=== PATIENT | male | born 1950 | race Caucasian/White ===

== ENCOUNTER 2016-08-09 22:22 | Observation (INO) | payer BC ==
[~2016-08-09] VITALS: Ht 177.8 cm; Wt 90.5 kg
--- NOTE | ~2016-08-09 | HEMODYNAMI ---
PATIENT:ROSIE CORDOVA MEDICAL RECORD: [id number] : 54 LOCATION:[address] [id number] ADMISSION DATE: 08/10/16 Generatedon:08/10/201613:00 Patient name: ROSIE CORDOVA Patient #: [id number] SSN: : 1 03/13/1949 Date of study: 08/10/2016 Page: Of Hemodynamic Procedure Report Patient Data Patient Demographics Procedure consent was obtained First Name: ROSIE Gender: Male Last Name: TASHA : 1950 [facility] Initial: E Age: 66 year(s) Patient #: [id number] Race: Unknown Additional ID: [id number] Contact details [address]: [address] [place] [address] State: [place] City: [place] Zip code: [address] Past Medical History Allergies Allergen Reaction Date Comments Reported Other allergy 08/10/2016 hydrocodone Admission Admission Data Admission Date: 08/10/2016 Admission Time: 1:12 Room #: [facility] Lab Results Lab Result Date: 08/10/2016 Lab Result Time: 0:00 Biochemistry Name Units Result Min Max Creatinine mg/dl 1.3 --(---*)-- 0.6 1.3 CBC Name Units Result Min Max Hemoglobin g/dl 17 --(---*)-- 13.5 17.5 Procedure Procedure Types Cath Procedure Diagnostic Procedure LHC LHC w/Coronaries PCI Procedure Coronary Stent Initial x2 Miscellaneous Procedures Moderate Sedation up to 30 minutes Procedure Description Procedure Date Procedure Date: 08/10/2016 Procedure Start Time: 12:34 Procedure End Time: 12:59 Procedure Staff Name Function Jonathon Quiroga MD Performing Physician Radha Bender RT Scrub America Bedolla RN Nurse Artie Ho RN Nurse Celeste Moffett RT Monitor Procedure Data Cath Procedure Fluoroscopy Diagnostic fluoroscopy Total fluoroscopy Time: 8.4 time: 8.4 min min Diagnostic fluoroscopy Total fluoroscopy dose: dose: 1304 mGy 1304 mGy Contrast Material Contrast Material Type Amount (ml) Isovue 300 144 Entry Location Entry Primary Successful Side Size Upsize Upsize Entry Closure White ccessful Closure Location (Fr) 1 (Fr) 2 (Fr) Remarks Device Remarks Radial Right 6 Fr Mechanical artery Short Compression Estimated blood loss: 10 ml Diagnostic catheters Device Type Used For End Catheter Placement Diagnostic Terumo 5Fr LV Angiography [place] 110cm catheter Diagnostic Terumo 5Fr Left Coronary [place] 110cm catheter Angiography Diagnostic Terumo 5Fr Right Coronary [place] 110cm catheter Angiography Procedure Complications No complications Procedure Medications Medication Administration Route Dosage Lidocaine 2% added to field 20 Heparin Flush Bag added to field 2 bags (1000units/500ml NS) 0.9% NaCl I.V. 100 ml/hr Oxygen NC 3 l/min Radial Cocktail added to field 1 syringe (Verapomil 2mg/Nitro 400mcg/Heparin 1500units) Versed I.V. 1 mg Fentanyl I.V. 50 mcg Heparin Bolus I.V. 5000 units Integrilin (Bolus I.V. 7.9 ml 2mg/ml) Versed I.V. 0.5 mg Fentanyl I.V. 25 mcg Plavix P.O. 75 mg Radial Cocktail I.A. 1 syringe (Verapomil 2mg/Nitro 400mcg/Heparin 1500units) Hemodynamics Rest HGB: 17 (g/dl) Heart Rate: 75 (bpm) Snapshots Pre Cath Intra NCS Post Cath Vital Signs Time Heart Resp SPO2 NIBP (mmHg) Rhythm Pain Sedation Rate (ipm) (%) Status Level (bpm) 12:20:47 80 17 100 162/105(128) NSR 0 (11) 10(A) , No pain 12:25:05 80 15 100 138/78(120) NSR 0 (11) 10(A) , No pain 12:29:21 86 16 100 137/83(106) NSR 0 (11) 10(A) , No pain 12:33:35 83 15 100 140/85(111) NSR 0 (11) 9(A) , No pain 12:37:57 94 15 100 106/72(90) NSR 0 (11) 9(A) , No pain 12:42:44 89 13 98 130/78(105) NSR 0 (11) 9(A) , No pain 12:47:00 90 17 99 128/76(102) NSR 0 (11) 9(A) , No pain 12:51:14 83 16 99 135/77(108) NSR 0 (11) 9(A) , No pain 12:55:28 87 16 100 137/83(112) NSR 0 (11) 10(A) , No pain 12:59:44 97 129/84(103) NSR 0 (11) 10(A) , No pain Medications Time Medication Route Dose Verified Delivered Reason Notes Effectiveness by by 12:10:52 Lidocaine 2% added 20ml America America used for to vial Graeme Graeme procedure field RN RN 12:11:01 Heparin Flush added 2 bags America America used for Bag to Graeme Graeme procedure (1000units/500ml field RN RN NS) 12:15:39 0.9% NaCl I.V. 100 America America used for ml/hr Graeme Graeme hog dropper RN 12:15:51 Oxygen NC 3 l/min America America used for Graeme Graeme hog dropper RN 12:15:59 Radial Cocktail added 1 America America used for (Verapomil to syringe Graeme Graeme procedure 2mg/Nitro field RN RN 400mcg/Heparin 1500units) 12:30:45 Versed I.V. 1 mg America America for Graeme Graeme sedation RN RN 12:30:52 Fentanyl I.V. 50 mcg America America for Graeme Graeme sedation RN RN 12:35:30 Versed I.V. 0.5 mg America America for Graeme Graeme sedation RN RN 12:35:38 Fentanyl I.V. 25 mcg America America for Graeme Graeme sedation RN RN 12:35:41 Radial Cocktail I.A. 1 Jonathon Holt used for (Verapomil syringe Junaid Quiroga MD procedure 2mg/Nitro 400mcg/Heparin 1500units) 12:38:59 Heparin Bolus I.V. 5000 America America Per verified units Graeme Graeme physician with RN WILBERTO quiroga 12:40:52 Integrilin I.V. 7.9ml America America Per 2.1ml (Bolus 2mg/ml) Graeme Graeme physician wasted RN RN 12:53:24 Plavix P.O. 75 mg America Bedolla physician RN customer marketing intern Log Time Note 12:07:42 Artie Ho RN sent for patient. Start room use. 12:07:42 Time tracking: Regular hours 12:07:46 Plan of Care:Hemodynamics will remain stable., Cardiac rhythm will remain stable., Comfort level will be maintained., Respiratory function will remain adequate., Patient/ family verbilizes understanding of procedure., Procedure tolerated without complication., Recovers from procedure without complications.. 12:10:52 Lidocaine 2% 20ml vial added to field was administered by America Bedolla RN; used for procedure; 12:11:01 Heparin Flush Bag (1000units/500ml NS) 2 bags added to field was administered by America Bedolla RN; used for procedure; 12:12:10 Patient received from PCU to CCL 2 Alert and oriented. Tansferred to table in Supine position. 12:12:11 Warm blankets applied, and tereza hugger turned on for patient comfort. 12:12:11 Correct patient and procedure confirmed by team. 12:12:12 Signed procedure consent form obtained from patient. 12:12:13 ECG and BP/O2 sat monitors applied to patient. 12:12:14 Full Disclosure recording started 12:15:39 0.9% NaCl 100 ml/hr I.V. was administered by America Bedolla RN; used for procedure; 12:15:51 Oxygen 3 l/min NC was administered by America Bedolla RN; used for procedure; 12:15:59 Radial Cocktail (Verapomil 2mg/Nitro 400mcg/Heparin 1500units) 1 syringe added to field was administered by America Bedolla RN; used for procedure; 12:19:39 Vital chart was started 12:21:12 Baseline sample Acquired. 12:21:15 Rhythm: sinus rhythm 12:21:47 H&P Date Dictated: 08/10/2016 Within 30 days and on chart.. 12:21:48 Pre-procedure instructions explained to patient. 12:21:48 Pre-op teaching completed and patient verbalized understanding. 12:21:49 Family in waiting room. 12:21:51 Patient NPO since Midnight. 12:22:02 Patient allergic to Other allergyhydrocodone 12:22:05 Is the patient allergic to Iodine/contrast media? No. 12:22:06 Is patient on blood thinner?Yes 12:22:09 ACC The patient was administered the following blood thiners within the last 24 hours: ACCPlavix 12:22:10 Patient diabetic? No. 12:22:14 Previous problem with sedation/anesthesia? No ? 12:22:14 Snore? Yes 12:22:16 Sleep apnea? Yes 12:22:17 Deviated septum? No 12:22:18 Opens mouth fully? Yes 12:22:24 Sticks out tongue? Yes 12:22:32 Airway obstruction? Yes ASTHMA 12:22:36 Dentures? No ? 12:22:39 Pre procedure: right dorsailis pedis pulse 2+ Normal; easily identifiable; not easily obliterated 12:22:41 Modified Jovani's test Ulnar < 7 seconds 12:22:42 Patient pain scale 0/10 ?. 12:22:50 IV patent on arrival in left hand with 0.9% NaCl at [facility]. 12:23:07 Lab Result : Hemoglobin 17 g/dl 12:23:07 Lab Result : Creatinine 1.3 mg/dl 12:23:10 Lab results completed and on chart. 12:23:13 Right Radial & Right Groin area was prepped with chlora-prep and draped in sterile fashion 12:23:13 Alarms reviewed by R. N. 12:23:14 Sharps counted by scrub and verified by R.N. 12:23:15 Use device set Radial Dx 12:23:17 Acist Syringe opened to sterile field. 12:23:17 Medline Cath Pack opened to sterile field. 12:23:18 Bag Decanter opened to sterile field. 12:23:18 Terumo 6Fr Slender Glidesheath opened to sterile field. 12:23:19 St Larry 260cm J .035 wire opened to sterile field. 12:23:19 Acist Hand Control opened to sterile field. 12:23:19 Acist Manifold opened to sterile field. 12:23:20 Tegaderm 4 x 4 opened to sterile field. 12:23:48 IV Extension Set opened to sterile field. 12:28:37 Final Timeout: patient, procedure, and site verified with staff and physician. All members of the team are in agreement. 12::40 Right Radial site verified by team. 12::42 Physical assessment completed. ASA score P 2 - A patient with mild systemic disease as per Jonathon Quiroga MD. 12::45 Sedation plan: IV Moderate Sedation Versed, Fentanyl 12::45 Versed 1 mg I.V. was administered by America Bedolla RN; for sedation; ::52 Fentanyl 50 mcg I.V. was administered by America Bedolla RN; for sedation; 12::30 Zero performed for pressure channel P1 12:33:17 Procedure started. 12:34:10 Local anesthetic to right radial artery with Lidocaine 2% by Jonathon Quiroga MD.INITIAL ACCESS ONLY 12:35:08 A 6 Fr Short sheath was inserted into the Right Radial artery 12:35:30 Versed 0.5 mg I.V. was administered by America Bedolla RN; for sedation; 12:35:38 Fentanyl 25 mcg I.V. was administered by America Bedolla RN; for sedation; 12:35:38 A Diagnostic Terumo 5Fr [place] 110cm catheter was advanced over the wire and used for LV Angiography. 12:35:41 Radial Cocktail (Verapomil 2mg/Nitro 400mcg/Heparin 1500units) 1 syringe I.A. was administered by Jonathon Quiroga MD; used for procedure; 12:37:18 LV gram done using MERCADO 12:37:22 Injector settings: Ml/sec: 5, Volume: 15, 12:37:29 EF : 60 % 12:37:40 A Diagnostic Terumo 5Fr [place] 110cm catheter was advanced over the wire and used for Left Coronary Angiography. 12:38:35 A Diagnostic Terumo 5Fr [place] 110cm catheter was advanced over the wire and used for Right Coronary Angiography. 12:38:59 Heparin Bolus 5000 units I.V. was administered by America Bedolla RN; Per physician; verified with dr. quiroga 12:39:16 Merit BasixCompak Inflation Kit opened to sterile field. 12:39:17 Manning Whisper J 300cm 0.014 guide wire opened to sterile field. 12:40:09 Catheter removed. 12::45 6 Fr XBLAD 3.5 guide catheter was inserted over the wire 12:40:52 Integrilin (Bolus 2mg/ml) 7.9ml I.V. was administered by America Bedolla RN; Per physician; 2.1ml wasted 12:42:09 WHISPER wire advanced. 12:43:20 Inflation number: 1 A [place] 2.5 X 20 balloon was prepped and advanced across the Mid CX, then inflated to 5 LALITHA for 0:06 (min:sec). 12:43:50 Inflation number: 2 The Fifty [place] Sci [place] 2.5 X 20 balloon was reinflated across the Mid CX, to 17 LALITHA for 0:09 (min:sec). 12:44:57 Balloon removed over the wire. 12:46:09 Inflation Number: 3 A Biofreedom 3.5 x 28 stent (No Cost Implant) was prepped and advanced across the Mid CX. The stent was deployed at 15 LALITHA for 0:07 (min:sec). 12:47:02 Stent catheter was removed intact over wire. 12:49:26 Inflation Number: 4 A Biofreedom 3.5 x 14 stent (No Cost Implant) was prepped and advanced across the Mid CX. The stent was deployed at 15 LALITHA for 0:10 (min:sec). 12:49:43 Wire redirected to LAD. 12:50:16 Stent catheter was removed intact over wire. 12:51:29 Inflation Number: 1 A Biofreedom 3.0 x 18 stent (No Cost Implant) was prepped and advanced across the Prox LAD. The stent was deployed at 15 LALITHA for 0:08 (min:sec). 12:51:56 Stent catheter was removed intact over wire. 12:51:56 Wire removed. 12:51:57 Guide catheter removed. 12:52:08 Sheath removed intact; hemostasis achieved with Mechanical Compression to the Right Radial artery. 12:53:07 Procedure ended.(Physican Out) 12:53:24 Plavix 75 mg P.O. was administered by America Bedolla RN; Per physician; 12:55:04 Terumo TR Band Standard opened to sterile field. 12:55:09 Fluoroscopy time 08.40 minutes. 12:55:13 Fluoroscopy dose: 1304 mGy 12:55:13 Flurop Dose total: 1304 12:55:18 Contrast amount:Isovue 300 144ml. 12:55:19 Sharps counted by scrub and verified by R.N. 12:55:21 TR band inflated with 12cc of air. 12:55:22 Insertion/operative site no bleeding no hematoma. 12:55:27 Post right radial artery:stable, clean and dry 12:55:29 Post Procedure Pulses reassessed and unchanged 12:55:32 Post-procedure physical assessment completed. ASA score P 2 - A patient with mild systemic disease as per Jonathon Quiroga MD. 12:55:36 Post procedure rhythm: unchanged. 12:55:38 Estimated blood loss: 10 ml 12:55:40 Post procedure instruction explained to patient.Patient verbalizes understanding. 12:55:41 Patient needs reinforcement of post procedure teaching. 12:56:12 Procedure type changed to Cath procedure, Diagnostic procedure, LHC, LHC w/Coronaries, PCI procedure, Coronary Stent Initial x2, Miscellaneous Procedures, Moderate Sedation up to 30 minutes 12:56:16 Procedure Complication : No complications 12:56:18 See physician's report for complete and final results. 12:56:26 Report given to PCU. 12:57:28 Cordis 6FR XBLAD 3.5 guide catheter opened to sterile field. 12:58:11 Procedure and supply charges have been captured, reviewed, submitted and are correct. 12:59:29 Vital chart was stopped 12:59:32 Patient transfered to PCU with Bed. 12:59:41 Procedure ended. 12:59:41 Full Disclosure recording stopped 12:59:53 End room use (Document Last) Intervention Summary Intervention Notes Time ActionType Lesion and Equipment Action# Pressure Duration Attributes Used 12:43:20 Inflate Mid CX [place] 1 5 00:06 balloon [place] 2.5 X 20 balloon 12:43:50 Reinflate Mid CX [place] 2 17 00:09 balloon [place] 2.5 X 20 balloon 12:46:09 Place stent Mid CX Biofreedom 3 15 00:07 3.5 x 28 stent (No Cost Implant) 12:49:26 Place stent Mid CX Biofreedom 4 15 00:10 3.5 x 14 stent (No Cost Implant) 12:51:29 Place stent Prox LAD Biofreedom 1 15 00:08 3.0 x 18 stent (No Cost Implant) Device Usage Item Name Manufacture Quantity Catalog Number Hospital Part Current Mini [facility] Lot# / Charge Number Stock Stock Serial# Code Acist Acist 1 86891 042100 122210 517323 20 Syringe Medical Systems Inc Medline Cardinal 1 [id number] 735780 53378 064380 5 Cath Pack Health Bag Microtek 1 [id number] 25049 354665 5 Decanter Medical Inc. Terumo 6Fr Terumo 1 [id number] 041388 786504 497324 [address] Larry 1 243391 919331 495332 708056 30 260cm J .035 wire Acist Hand Acist 1 27840 033017 798139 653957 5 Control Medical Systems Inc Acist Acist 1 36995 117448 245604 221500 5 Manifold Medical Systems Inc Tegaderm 4 3M 1 [id number] 605989 279174 727848 5 x 4 IV Hospira 1 55255-91 264400 87479 389340 5 Extension Set Diagnostic Terumo 1 40-0485 593692 431665 766577 5 Terumo 5Fr [place] 110cm catheter Merit Merit 1 [id number] 903996 609468 851076 15 BasixCompak Medical Inflation Kit Manning Manning 1 [id number] 412962 266733 014360 5 Whisper J Vascular 300cm 0.014 guide wire [place] Six 1 [id number] 793921 050877 516875 1 Solapa4 2.5 X 20 balloon Biofreedom Biosensors 1 [facility]2-3528 629411 192094 5 [id number] 3.5 x 28 [place] stent (No Cost Implant) Biofreedom Biosensors 1 [facility]2-1134 995428 876668 5 [id number] 3.5 x 14 [place] stent (No Cost Implant) Biofreedom Biosensors 1 [facility]2-3018 450697 269645 5 [id number] 3.0 x 18 [place] stent (No Cost Implant) Terumo TR Terumo 1 [id number] 515063 433221 648480 40 Band Standard Cordis 6FR Cardinal 1 [id number] 608574 769135 083300 10 XBLAD 3.5 Health guide catheter Signature Audit Hilger Stage Time Signature Unsigned Intra-Procedure 08/10/2016 Celeste 1:00:13 PM Counts RT(R) Signatures Monitor : Celeste Signature : Counts RT Date : Time : [address] [place] [address]
--- NOTE | ~2016-08-09 | HEMODYNAMI ---
PATIENT:ROSIE CORDOVA MEDICAL RECORD: [id number] : 54 LOCATION:[facility] D.[address] [id number] ADMISSION DATE: 08/10/16 Generatedon:08/11/20169:35 Patient name: ROSIE CORDOVA Patient #: [id number] SSN: : 1 03/13/1949 Date of study: 08/11/2016 Page: Of Hemodynamic Procedure Report Patient Data Patient Demographics Procedure consent was obtained First Name: ROSIE Gender: Male Last Name: TASHA : 1950 [facility] Initial: E Age: 66 year(s) Patient #: [id number] Race: Additional ID: [id number] Contact details [address]: [address] [place] [address] State: [place] City: [place] Zip code: [address] Past Medical History Allergies Allergen Reaction Date Comments Reported Other allergy 08/10/2016 hydrocodone Admission Admission Data Admission Date: 08/10/2016 Admission Time: 1:12 [facility] Lab Results Lab Result Date: 08/10/2016 Lab Result Time: 0:00 Biochemistry Name Units Result Min Max Creatinine mg/dl 1.3 --(---*)-- 0.6 1.3 CBC Name Units Result Min Max Hemoglobin g/dl 17 --(---*)-- 13.5 17.5 Procedure Procedure Types Cath Procedure PCI Procedure Coronary Stent Initial Miscellaneous Procedures Moderate Sedation up to 15 minutes Procedure Description Procedure Date Procedure Date: 08/11/2016 Procedure Start Time: 9:23 Procedure End Time: 9:35 Procedure Staff Name Function Jonathon Quiroga MD Performing Physician Artie Ho RN Nurse Celeste Moffett RT Scrub Radha Bender RT Monitor Procedure Data Cath Procedure Fluoroscopy Diagnostic fluoroscopy Total fluoroscopy Time: 1.8 time: 1.8 min min Diagnostic fluoroscopy Total fluoroscopy dose: 125 dose: 125 mGy mGy Contrast Material Contrast Material Type Amount (ml) Isovue 300 19 Entry Location Entry Primary Successful Side Size Upsize Upsize Entry Closure Succes sful Closure Location (Fr) 1 (Fr) 2 (Fr) Remarks Device Remarks Femoral Right 6 Fr Exoseal artery Short Estimated blood loss: 5 ml Procedure Complications No complications Procedure Medications Medication Administration Route Dosage Oxygen NC 2 l/min Lidocaine 2% added to field 20 Heparin Flush Bag added to field 2 bags (1000units/500ml NS) 0.9% NaCl I.V. 100 ml/hr Zofran I.V. 4 mg Versed I.V. 1 mg Fentanyl I.V. 50 mcg Heparin Bolus I.V. 4000 units Versed I.V. 1 mg Fentanyl I.V. 50 mcg Versed I.V. 1 mg Fentanyl I.V. 50 mcg Hemodynamics Rest HGB: 17 (g/dl) Heart Rate: 68 (bpm) Snapshots Pre Cath Intra NCS Post Cath Vital Signs Time Heart Resp SPO2 NIBP (mmHg) Rhythm Pain Sedation Rate (ipm) (%) Status Level (bpm) 8:51:25 67 23 100 147/95(127) NSR 0 (11) 10(A) , No pain 8:55:43 63 17 99 145/89(128) NSR 0 (11) 10(A) , No pain 8:59:57 77 17 100 148/89(124) NSR 0 (11) 10(A) , No pain 9:04:13 71 24 100 134/94(118) NSR 0 (11) 10(A) , No pain 9:08:27 70 24 96 126/81(101) NSR 0 (11) 10(A) , No pain 9:12:39 57 25 97 123/82(98) NSR 0 (11) 10(A) , No pain 9:16:49 59 19 98 128/80(101) NSR 0 (11) 10(A) , No pain 9:21:05 61 16 99 128/69(98) NSR 0 (11) 10(A) , No pain 9:25:21 60 18 99 131/72(105) NSR 0 (11) 9(A) , No pain 9:29:28 69 17 99 120/79(98) NSR 0 (11) 9(A) , No pain 9:34:32 77 17 98 138/84(107) NSR 0 (11) 10(A) , No pain Medications Time Medication Route Dose Verified Delivered Reason Notes Effectiveness by by 8:56:19 Oxygen NC 2 Jonathon Bolivarie used for l/min Junaid Ho RN procedure 8:56:24 Lidocaine 2% added 20ml Jonathonmolly Holt for local to vial Junaid Quiroga MD anesthetic field 8:56:31 Heparin Flush added 2 Jonathon Jonathon used for Bag to bags Junaid Quiroga MD procedure (1000units/500ml field NS) 8:56:39 0.9% NaCl I.V. 100 Jonathon Buffie Per physician ml/hr Junaid Ho RN 8:56:48 Zofran I.V. 4 mg Jonathon Bolivarie Per physician Junaid Ho RN 9:19:43 Versed I.V. 1 mg Jonathon Buffie for sedation Junaid Ho RN 9:19:48 Fentanyl I.V. 50 Jonathon Buffie for sedation mcg Junaid Ho RN 9:24:08 Heparin Bolus I.V. 4000 Jonathon Buffie for verifie d units Junaid Ho RN anticoagulation with dr quiroga 9:25:12 Versed I.V. 1 mg Jonathon Buffie for sedation Junaid Ho RN 9:25:16 Fentanyl I.V. 50 Jonathon Buffie for sedation mcg Junaid Ho RN 9:28:25 Versed I.V. 1 mg Jonathon Buffie for sedation Junaid Ho RN 9:28:28 Fentanyl I.V. 50 Jonathon Buffie for sedation mcg Junaid Ho RN Procedure Log Time Note 8:30:45 Celeste Counts RT(R) sent for patient. Start room use. 8:30:46 Time tracking: Regular hours 8:30:50 Plan of Care:Hemodynamics will remain stable., Cardiac rhythm will remain stable., Comfort level will be maintained., Respiratory function will remain adequate., Patient/ family verbilizes understanding of procedure., Procedure tolerated without complication., Recovers from procedure without complications.. 8:50:16 Patient received from PCU to CCL 2 Alert and oriented. Tansferred to table in Supine position. 8:50:17 Warm blankets applied, and tereza hugger turned on for patient comfort. 8:50:17 Correct patient and procedure confirmed by team. 8:50:18 Signed procedure consent form obtained from patient. 8:50:19 ECG and BP/O2 sat monitors applied to patient. 8:50:19 Vital chart was started 8:50:20 Full Disclosure recording started 8:52:18 Baseline sample Acquired. 8:53:58 Rhythm: sinus rhythm 8:54:12 H&P Date Dictated: 08/10/2016 Within 30 days and on chart.. 8:54:13 Pre-procedure instructions explained to patient. 8:54:14 Pre-op teaching completed and patient verbalized understanding. 8:54:15 Family in patients room. 8:54:18 Patient NPO since Midnight. 8:54:23 Is the patient allergic to Iodine/contrast media? No. 8:54:24 Is patient on blood thinner?Yes 8:54:28 ACC The patient was administered the following blood thiners within the last 24 hours: ACCAspirin, ACCPlavix 8:54:59 Patient diabetic? No. 8:55:02 Previous problem with sedation/anesthesia? No ? 8:55:03 Snore? Yes 8:55:04 Sleep apnea? Yes 8:55:05 Deviated septum? No 8:55:05 Opens mouth fully? Yes 8:55:06 Sticks out tongue? Yes 8:55:10 Airway obstruction? Yes ASTHMA 8:55:12 Dentures? No ? 8:55:14 Pre procedure: right dorsailis pedis pulse 2+ Normal; easily identifiable; not easily obliterated 8:55:17 Patient pain scale 0/10 ?. 8:55:24 IV patent on arrival in right hand with 0.9% NaCl at [facility]. 8:56:19 Oxygen 2 l/min NC was administered by Artie Ho RN; used for procedure; 8:56:24 Lidocaine 2% 20ml vial added to field was administered by Jonathon Quiroga MD; for local anesthetic; 8:56:31 Heparin Flush Bag (1000units/500ml NS) 2 bags added to field was administered by Jonathon Quiroga MD; used for procedure; 8:56:39 0.9% NaCl 100 ml/hr I.V. was administered by Artie Ho RN; Per physician; 8:56:48 Zofran 4 mg I.V. was administered by Artie Ho RN; Per physician; 8:57:36 Lab results completed and on chart. 8:57:39 Right groin area was prepped with chlora-prep and draped in sterile fashion 8:57:39 Alarms reviewed by R. N. 8:57:40 Sharps counted by scrub and verified by R.N. 8:57:43 Use device set Femoral PCI 8:57:44 Acist Syringe opened to sterile field. 8:57:45 Acist Hand Control opened to sterile field. 8:57:45 Bag Decanter opened to sterile field. 8:57:45 Medline Cath Pack opened to sterile field. 8:57:46 Terumo 6Fr Hitchcock Sheath opened to sterile field. 8:57:46 St Larry 260cm J .035 wire opened to sterile field. 8:57:46 Merit BasixCompak Inflation Kit opened to sterile field. 8:57:47 Acist Manifold opened to sterile field. 8:57:47 Tegaderm 4 x 4 opened to sterile field. 8:57:54 Manning Whisper J 300cm 0.014 guide wire opened to sterile field. 9:08:52 Zero performed for pressure channel P1 9:18:04 Final Timeout: patient, procedure, and site verified with staff and physician. All members of the team are in agreement. 9:18:06 Right groin site verified by team. 9:18:09 Physical assessment completed. ASA score P 2 - A patient with mild systemic disease as per Jonathon Quiroga MD. 9:18:12 Sedation plan: IV Moderate Sedation Versed, Fentanyl 9:19:43 Versed 1 mg I.V. was administered by Artie Ho RN; for sedation; 9:19:48 Fentanyl 50 mcg I.V. was administered by Artie Ho RN; for sedation; 9:19:59 Medtronic Launcher 6Fr AR 2.0 guide catheter opened to sterile field. 9:23:25 Procedure started. 9:23:28 Local anesthetic to right femoral artery with Lidocaine 2% by Jonathon Quiroga MD.INITIAL ACCESS ONLY 9:24:02 A 6 Fr Short sheath was inserted into the Right Femoral artery 9:24:08 Heparin Bolus 4000 units I.V. was administered by Artie Ho RN; for anticoagulation; verified with dr quiroga 9:24:29 6 Fr AR 2.0 guide catheter was inserted over the wire 9:25:12 Versed 1 mg I.V. was administered by Buffie Ho RN; for sedation; 9:25:16 Fentanyl 50 mcg I.V. was administered by Artie Ho RN; for sedation; 9::45 Whisper wire advanced. 9::38 Inflation Number: 1 A Biofreedom 3.0 x 14 stent (No Cost Implant) was prepped and advanced across the Prox RCA. The stent was deployed at 15 LALITHA for 0:10 (min:sec). 9::50 Stent catheter was removed intact over wire. 9:: Wire removed. 9:: Guide catheter removed. 9::59 Sheath removed intact; hemostasis achieved with Exoseal to the Right Femoral artery. 9:28:00 Procedure ended.(Physican Out) 9:28:10 Fluoroscopy time 01.80 minutes. 9::13 Flurop Dose total: 125 9::13 Fluoroscopy dose: 125 mGy 9:28:22 Contrast amount:Isovue 300 19ml. 9:28:25 Versed 1 mg I.V. was administered by Artie Ho RN; for sedation; :: Fentanyl 50 mcg I.V. was administered by Artie Ho RN; for sedation; 9:30:22 Sharps counted by scrub and verified by R.N. 9:30:23 Insertion/operative site no bleeding no hematoma. 9:30:26 Post-op/insertion site Right Femoral artery dressed using a 4 x 4 and Tegaderm. 9:30:29 Post right femoral artery:stable, clean and dry 9:30:30 Post Procedure Pulses reassessed and unchanged 9:30:34 Post-procedure physical assessment completed. ASA score P 2 - A patient with mild systemic disease as per Jonathon Quiroga MD. 9:30:37 Post procedure rhythm: unchanged. 9:30:40 Estimated blood loss: 5 ml 9:30:46 Post procedure instruction explained to patient.Patient verbalizes understanding. 9:30:47 Patient needs reinforcement of post procedure teaching. 9:30:51 Procedure type changed to Cath procedure, PCI procedure, Coronary Stent Initial, Miscellaneous Procedures, Moderate Sedation up to 15 minutes 9:30:57 Procedure Complication : No complications 9:30:59 See physician's report for complete and final results. 9:31:37 Cordis 6Fr Exoseal opened to sterile field. 9:32:12 Procedure and supply charges have been captured, reviewed, submitted and are correct. 9:35:09 Vital chart was stopped 9:35:11 Report given to PCU. 9:35:14 Patient transfered to PCU with Bed. 9:35:22 Procedure ended. 9:35:22 Full Disclosure recording stopped 9:35:27 End room use (Document Last) Intervention Summary Intervention Notes Time ActionType Lesion and Equipment Action# Pressure Duration Attributes Used 9:27:[address] Place stent Prox RCA Biofreedom 1 15 00:10 3.0 x 14 stent (No Cost Implant) Device Usage Item Name Manufacture Quantity Catalog Hospital Part Current Minimal Lot# / Number Charge Number Stock Stock Serial# Code Acist Acist 1 79190 922703 812618 270794 20 Syringe Medical Systems Inc Acist Hand Acist 1 32193 359760 078657 100919 5 Control Medical Systems Inc Bag Microtek 1 2002S 643585 40527 195883 5 Apriva Medical Inc. Medline Cardinal 1 [id number] 077563 49764 218653 5 Cath Pack Health Terumo 6Fr Terumo 1 [id number] 110387 483777 756468 [address] Larry 1 867435 056159 295602 802248 30 260cm J .035 wire Merit Merit 1 [id number] 073304 714066 161677 15 Icontrol NetworksixInnovasic Semiconductor Medical Inflation Kit Acist Acist 1 95192 441840 658758 338899 5 Manifold Medical Systems Inc Tegaderm 4 3M 1 1626W 393648 149911 593942 5 x 4 Manning Manning 1 [id number] 710848 345531 886431 5 Whisper J Vascular 300cm 0.014 guide wire Medtronic Medtronic 1 [id number] 041370 68140 116328 1 Launcher 6Fr AR 2.0 guide catheter Biofreedom Biosensors 1 [id number] 255615 505303 5 [id number] 3.0 x 14 [place] SA stent (No Cost Implant) Cordis 6Fr Cardinal 1 EX600 803788 634315 540188 10 Livestation Signature Audit Elizabeth Stage Time Signature Unsigned Intra-Procedure 08/11/2016 Celeste 9:35:53 AM Counts RT(R) Signatures Monitor : Radha Bender Signature : RT Date : Time : [address] [place] [address]
[2016-08-09 23:40] LABS: HEMATOCRIT 47.2 % (42.0-54.0); LYMPHOCYTES 18.9 % (15-50); MCH 28.9 pg (26.0-34.0); MCV 80.3 fL (80.0-100.0); MEAN PLATELET VOLUME 9.1 fL (7.4-10.4); NEUTROPHILS 73.1 % (40-80); RBC 5.88 10x6/uL (4.20-6.10); RDW 14.5 % (11.5-14.5); WBC 11.9 10x3/uL (4.8-10.8)
[2016-08-09 23:41] LABS: PLATELET COUNT 252 10x3/uL (130-400)
[2016-08-09 23:55] LABS: ALBUMIN 4.2 g/dL (3.4-5.0); ALKALINE PHOSPHATASE 76 U/L (46-116); ALT (SGPT) 52 U/L (10-68); BILIRUBIN - TOTAL 1.47 mg/dL (0.2-1.3); CALC OSMOLALITY 285 mosm/kg (275-300); CALCIUM 9.5 mg/dL (8.5-10.1); CARBON DIOXIDE 25.4 mmol/L (21.0-32.0); CHLORIDE - SERUM 103 mmol/L (98-107); CREATININE - SERUM 1.3 mg/dL (0.6-1.3); GLUCOSE 132 mg/dL (74-106); PROTEIN - SERUM 7.7 g/dL (6.4-8.2); SODIUM 138 mmol/L (136-145); UREA NITROGEN 34 mg/dL (7-18); eGFR NON AFRICAN AMERICAN 59 mL/min (90-120)
[2016-08-10 00:01] LABS: APTT 24.8 SECONDS (22.8-39.4); INR 0.97 (0.85-1.17); PROTIME 12.8 SECONDS (11.6-15.0)
[2016-08-10 00:23] LABS: CREATINE KINASE 266 UL (21-232)
[2016-08-10 00:24] LABS: CKMB 18.7 U/L (0.0-3.6); TROPONIN-I 2.893 ng/mL (0.000-0.060)
--- NOTE | 2016-08-10 01:43 | NUR ---
RECIEVED TO ROOM FROM ER VIA WC. A&O. VITALS OBTAINED, PLACED ON TELEMETRY. PT DENIES PAIN OR NEEDS AT THIS TIME, BED LOW, CL IN REACH.
[2016-08-10] MEDS ORDERED: HALCION0.25 MG PO (01:51)
[2016-08-10] MEDS ORDERED: XANAX0.25 MG PO (01:51)
[2016-08-10] MEDS ORDERED: ALEVE220 MG PO (01:52)
[2016-08-10] MEDS ORDERED: NAPROSYN500 MG PO (01:53)
[2016-08-10] MEDS ORDERED: ULTRAM50 MG PO (01:53)
[2016-08-10 03:05] VITALS: Ht 177.8 cm; Wt 90.5 kg
--- NOTE | 2016-08-10 03:12 | NUR ---
PROGRAM STRATEGIST AT BEDSIDE TO OBTAIN VITALS, CALL LIGHT IN REACH. WILL CONTINUE TO MONITOR.
[2016-08-10 04:34] VITALS: BP 154/99
--- NOTE | 2016-08-10 05:12 | NUR ---
RESTING WITH EYES CLOSED, RESPERATIONS EVEN, NO S/S DISTRESS NOTED.
--- NOTE | 2016-08-10 07:55 | NUR ---
0715- AM ROUNDING- RECEIVED REPORT FROM CRIMP SETTER NURSE SREE. PT IS CURRENTLY LAYING IN BED ON BACK WITH EYES OPEN RESTING. IS AT BEDSIDE. ON 02 AT 2L VIA NC. ON MONITOR SHOWING SR, HR 73. IV SEEN TO LEFT HAND WITH D5NS RUNNING AT 100CC. PT IS ALERT AND ORIENTED. PT DENIES ANY PAIN OR NEED AT CURRENT TIME. WILL CONTINUE TO MONITOR AND CONTINUE WITH PLAN OF CARE.
[2016-08-10 08:19] VITALS: BP 125/83
[2016-08-10 08:48] LABS: BASOPHILS 0.1 % (0-2); EOSINOPHILS 0 % (0-7); HEMATOCRIT 44.5 % (42.0-54.0); HEMOGLOBIN 16.1 g/dL (13.5-17.5); IMMATURE GRANULOCYTES 0.3 % (0-5); LYMPHOCYTES 13.6 % (15-50); MCH 29.8 pg (26.0-34.0); MCHC 36.2 g/dL (31.0-37.0); MCV 82.4 fL (80.0-100.0); MEAN PLATELET VOLUME 10.1 fL (7.4-10.4); MONOCYTES 1.6 % (2-11); NEUTROPHILS 84.4 % (40-80); PLATELET COUNT 218 10x3/uL (130-400); RDW 13.4 % (11.5-14.5)
[2016-08-10 09:07] LABS: ANION GAP 18.2 mmol/L (8-16); CALCIUM 9.8 mg/dL (8.5-10.1); CARBON DIOXIDE 21.9 mmol/L (21.0-32.0); CREATININE - SERUM 1.3 mg/dL (0.6-1.3); POTASSIUM - SERUM 4.1 mmol/L (3.5-5.1)
--- NOTE | 2016-08-10 10:07 | NUR ---
PT INFORMED TO BE NPO FOR CARDIAC CATH THIS AFTERNOON ORDERED. PT AGREES. CONSENTS FOR PROCEDURE SIGNED AND PLACED IN CHART.
--- NOTE | 2016-08-10 11:52 | NUR ---
GAVE PT PRE-OP MEDICATIONS ORDRED BY CLINICAL SERVICES ASSISTANT. BAG OF NS ON BED WITH PRIMED TUBING. NITRO-PASTE ON RIGHT WRIST. PO MEDICATIONS GIVEN WITH SIP OF WATER. AWAITING CLINICAL SERVICES ASSISTANT TO GET PT. WILL CONTINUE TO MONITOR.
[2016-08-10 12:06] VITALS: BP 135/84
--- NOTE | 2016-08-10 12:09 | NUR ---
PT TO HIGH FREQUENCY MILL OPERATOR VIA BED.
--- NOTE | 2016-08-10 13:18 | NUR ---
RECEIVED PT VIA BED FROM VERIFICATION SPECIALIST. PT IS ALERT AND ORIENTED. DENIES ANY PAIN OR DISCOMFORT AT CURRENT TIME. T-BAND SEEN TO RIGHT WRIST AREA, PT IS HOLDING SYRINGE IN RIGHT HAND. FREQUENT VITAL SIGNS STARTED. WILL CONTINUE TO MONITOR.
--- NOTE | 2016-08-10 13:38 | NUR ---
CALLED [facility] TO SEE IF THEY GAVE PT PLAVIX BEFORE RETURNING TO FLOOR BECAUSE PT STATES HE HAD ALREADY HAD PLAVIX WHEN I WENT TO GIVE HIM MEDICATION. CALLED [facility] AND SPOKE WITH JOHNY, JOHNY STATES THEY DID GIVE PT PLAVIX PRIOR TO BRINGING PT BACK TO FLOOR.
--- NOTE | 2016-08-10 19:10 | NUR ---
Received patient resting in bed with eyes open, assessment completed per flowsheet. Patient AO x4, calm and cooperative. Eyes PERRLA @ 4mm with brisk response, sclera is white. S1/S2 noted NSR on telemetry with HR 88, rhythmic and regular. Breathing is even and unlabored on room air, lung sounds clear throughout. Abdomen is soft and non-tender to palpation, bowel sounds active x4. Patient ambulates self to commode without assistance, clear yellow urine noted. Full ROM all extremities with all pulses palpable, cap refill < 3 sec. TR band R wrist from cath procedure 08/10, slight bleeding noted under band cleaned and repressurized. 20g PIV noted L hand, patent with dressing intact. Patient c/o constant pain R shoulder from pre-hospitalization fall, PRN pain medication provided. No further needs at this time, all VSS and will continue to monitor.
[2016-08-10 21:00] VITALS: BP 118/69
--- NOTE | 2016-08-10 21:00 | NUR ---
HS meds given without difficulty, TR band still in place for slight bleeding. Will continue to monitor.
--- NOTE | 2016-08-10 23:00 | NUR ---
Reassessment completed per flowsheet, pateint resting in bed with eyes closed. S1/S2 noted NSR on telemetry with HR 66, rhythmic and regular. All pulses palpable with cap refill < 3 sec, No bleeding or drainage noted R wrist with pressure band removed. Breathing is even and unlabored on room air. Patient Denies pain or other needs at this time, all VSS and will continue to monitor.
--- NOTE | 2016-08-11 | NUR ---
Patient placed on NPO status for cath procedure in AM.
[2016-08-11 00:32] VITALS: BP 150/85
--- NOTE | 2016-08-11 01:00 | NUR ---
Patient resting in bed with eyes closed, breathing is even and unlabored. No bleeding noted from R wrist, all pulses palpable with cap refill < 3 sec. No further needs at this time, all VSS and will continue to monitor.
--- NOTE | 2016-08-11 03:00 | NUR ---
Reassessment completed per flowsheet, patient resting in bed with eyes closed. S1/S2 noted NSR on telemetry with HR 64, slightly irregular. Breathing is even and unlabored on room air with lung sounds clear throughout. R wrist cath site dressing secured, no bleeding noted. All pulses palpable with cap refill < 3 sec, full ROM all extremities with skin warm to touch. Patient c/o constant pain 4/10 R shoulder from fall prior to hospitalization. Denies other needs at this time, all VSS and will continue to monitor.
[2016-08-11 04:05] VITALS: BP 99/66
--- NOTE | 2016-08-11 06:00 | NUR ---
Patient showered and chlorhexidine wash performed for cath procedure in AM. No further needs at this time, all VSS and will continue to monitor.
--- NOTE | 2016-08-11 07:15 | NUR ---
Iv resited to R Hand, Patent dressing intact. L Hand IV D/C from infiltration.
--- NOTE | 2016-08-11 07:34 | NUR ---
AM ROUNDING- RECEIVED REPORT FROM SHIFT MGR NURSE GIGI. PT IS CURRENTLY LAYING IN BED ON BACK WITH EYES OPEN RESTING. IS AT BEDSIDE. CURRENTLY NPO FOR CARDIAC CATH THIS AM ORDERED. PER WILBERTO YU PT HAS HAD BATH FOR SURGERY AND CONSENTS ARE SIGNED AND IN CHART. WILBERTO HILL SITED PT WITH NEW IV CATHETER TO RIGHT HAND, CURRENTLY SALINE LOCKED. ON ROOM AIR. ON MONITOR SHOWING SR, HR 63. NO NEED AT CURRENT TIME. WILL CONTINUE TO MONITOR AND AWAIT PAYROLL BENEFITS CLERK TO CALL FOR ORDERS.
--- NOTE | 2016-08-11 08:17 | NUR ---
PRE-OP MEDICATIONS GIVEN DIRECTED. NS HUNG AND IV TUBING PRIMED. AM MEDICATIONS GIVEN PER MOTOR BRAKEMAN. WILL AWAIT MOTOR BRAKEMAN TO GET PT. WILL CONTINUE OT MONITOR.
[2016-08-11 08:18] VITALS: BP 132/85
--- NOTE | 2016-08-11 08:49 | NUR ---
PT TO WOOD FLOOR REFINISHER VIA BED.
--- NOTE | 2016-08-11 09:58 | NUR ---
RECEIVED PT VIA BED FROM CHLORINE CELL TENDER. RECEIVED REPORT FROM JOHNY IN CHLORINE CELL TENDER. CLEAN, DRY, AND INTACT DRESSING WITH OPSITE SEEN TO RIGHT GROIN AREA. NO BLEEDING SEEN. PT AND FAMILY INSTRUCTED THAT PT REMAIN LAYING FLAT FOR 4 HOURS. PT AGREES. WILL CONTINUE TO MONITOR.
[2016-08-11] MEDS ORDERED: BAYER CHEWABLE81 MG (10:45)
[2016-08-11] MEDS ORDERED: PLAVIX75 MG PO (10:45)
[2016-08-11] MEDS ORDERED: TOPROL XL25 MG PO (11:24)
[2016-08-11] MEDS ORDERED: PRAVACHOL20 MG PO (11:24)
--- NOTE | 2016-08-11 12:55 | NUR ---
Nutrition follow-up: Instructed pt and spouse on heart healthy eating. Provided pt with diet handouts and answered all questions. RDN will be available if needed.
--- NOTE | 2016-08-11 13:38 | NUR ---
EKG DONE ORDERED AND PLACED IN CHART. PT IS LAYING FLAT ORDERED. DRESSING TO RIGHT GROIN AREA IS CLEAN, DRY, AND INTACT WITH NO BLEEDING SEEN.
--- NOTE | 2016-08-11 14:13 | NUR ---
D/C INSTRUCTIONS EXPLAINED TO PT. D/C PAPERWORK SIGNED BY PT AND PLACED IN CHART. INFORMED PT THAT IF DRESSING TO RIGHT GROIN WITH OPSITE BLEEDS TO MAKE SURE AND HOLD PRESSURE AND CALL 911, PT AND AGREE. HEART MONITOR REMVOED AND RETURNED TO STAPLETON IN TELEMETRY. PT IS GETTING BELONGINGS TOGETHER NOW, WILL D/C ONCE READY. 1415- PT D/C VIA WHEELCHAIR.
--- NOTE | 2016-08-12 08:33 | PRO ---
PATIENT:ROSIE CORDOVA MEDICAL RECORD: [id number] : 54 LOCATION:D.M2 D.0 ADMISSION DATE: 08/10/16 PROCEDURE PERFORMED BY: EVELIA DICKSON MD PROCEDURE DATE: 08/11/16 PROCEDURES: 1. PTCA stent right coronary artery. 2. Selective coronary angiography. INDICATION: 1. Non-Q wave myocardial infarction. 2. Angina. PROCEDURE IN DETAIL: After informed consent was obtained and after detailed explanation of risks, benefits, as well as alternative therapies, the patient elected to proceed with angiogram. The right femoral area was prepped and draped in a normal sterile fashion. The right femoral artery was cannulated via modified Seldinger technique with placement of 6-Swedish sheath. All catheters exchanged through this sheath. FINDINGS: The right coronary artery has an 80% stenosis in the proximal vessel. This was addressed with a 3.0 X 14 millimeter BioFreedom stent. The result was 0% residual stenosis. OVERALL IMPRESSION: Successful percutaneous transluminal coronary angioplasty stent of the right coronary artery going from 80% initial stenosis to 0% residual stenosis. There was LEE ANN 3 flow before and after the intervention, and the lesion was 12 millimeters in a 3.0 vessel. EVELIA DICKSON MD at 0833 CC: [id number] DICTATION DATE: 08/11/162112 UPHOLSTERER LIMOUSINE AND HEARSE: JKADY 08/11/162109 DIS [place] 08/11/16 [place] [id number] [place] [id number]
--- NOTE | 2016-08-12 08:33 | HP ---
PATIENT: ROSIE CORDOVA MEDICAL RECORD: [id number] ACCOUNT: [id number] LOCATION:[address] : 54 ADMISSION DATE: 08/10/16 HISTORY AND PHYSICAL EXAMINATION CARDIOLOGY CONSULT PROBLEM LIST: 1. Non-Q wave myocardial infarction. 2. Coronary artery disease. 3. Chronic neck pain. 4. Chronic NSAID use due to neck pain. HISTORY OF PRESENT ILLNESS: This is a gentleman with no cardiac history who began having chest pain over two weeks ago. He attributed it to pain he had from March from a fall. He had a neck injury. In fact, he was scheduled for a neck surgery within the next month secondary to this chronic pain. The pain worsened and radiated to his chest. He mistook that pain for noncardiac pain, however, it worsened. He came to the emergency room and his troponin did increase to 9.9. PHYSICAL EXAMINATION: HEAD, EYES, EARS, NOSE, AND THROAT: Benign. NECK: Supple. No jugular venous distention. Carotid upstroke plus two bilaterally without bruits. LUNGS: Overall clear to auscultation and percussion. HEART: Regular. Normal S1, normal S2. No S3, no S4. No murmurs. BONES, JOINTS, EXTREMITIES: No clubbing, cyanosis, or edema. OVERALL IMPRESSION: Chest pain not secondary to his neck injury, secondary to cardiac. Will proceed with coronary angiography. Will hopefully revascularize transcatheter and use a stent that requires only 30 days of Plavix secondary to the chronic NSAID use and secondary to the upcoming planned neck surgery. EVELIA DICKSON MD at 0833 CC: [id number] DICTATION DATE: 08/10/16 1200 VOUCHER EXAMINER: ZULLY 08/11/16 1053 DIS IN 08/11/16 [facility] [address] [place] [address]
--- NOTE | 2016-08-12 08:33 | OP ---
PATIENT NAME: ROSIE CORDOVA MEDICAL RECORD: [id number] :54 LOCATION:D.M2 D.2130 ADMISSION DATE:08/10/16 SURGEON: EVELIA DICKSON MD OPERATION DATE: 08/10/16 PROCEDURES: 1. PTCA stent left circumflex. 2. PTCA stent left anterior descending. 3. Left heart catheterization. 4. Selective coronary angiography. 5. Left ventriculogram. INDICATION: 1. Myocardial infarction. 2. Coronary artery disease. PROCEDURE IN DETAIL: After informed consent was obtained and after detailed explanation of risks, benefits, as well as alternative therapies, the patient elected to proceed with angiogram and angioplasty. The right radial area was prepped and draped in a normal sterile fashion. The right radial artery was cannulated via modified Seldinger technique with placement of 6-Kyrgyz sheath. All catheters exchanged through this sheath. FINDINGS: The left ventriculogram was performed in standard 30 degree MERCADO view, reveals good cardiac wall motion throughout all segments. Overall ejection fraction estimated 60%. SELECTIVE CORONARY ANGIOGRAPHY: 1. Left main is with no significant angiographic disease. 2. Left anterior descending has an 80% stenosis in the proximal vessel. This is a 15 millimeter lesion with LEE ANN 3 flow. Otherwise, the left anterior descending has moderate irregularities. 3. Left circumflex has 100% stenosis in the mid vessel. This is an 8 millimeter lesion in a 3.5 vessel with LE EANN 0 flow. 4. The right coronary artery has an 80% stenosis in the proximal vessel. PTCA STENT OF THE LEFT CIRCUMFLEX: The stents used were 3.5 X 28 and 3.5 X 14 both BioFreedom stents. Result was 0% residual stenosis and religious of LEE ANN 3 flow. PTCA STENT OF THE LEFT ANTERIOR DESCENDING: The stent used was a 3.0 X 18 millimeter BioFreedom stent taken to 17 atmospheres. The result was 0% residual stenosis and LEE ANN 3 flow. OVERALL IMPRESSION: Successful percutaneous transluminal coronary angioplasty stent of the left circumflex going from 100% initial stenosis to 0% residual stenosis and successful percutaneous transluminal coronary angioplasty stent of the left anterior descending going from 80% initial stenosis to 0% residual stenosis. Plan for percutaneous transluminal coronary angioplasty stent of the right coronary artery in the morning. OPERATIVE REPORT [id number] ROSIE CORDOVA EVELIA DICKSON MD at 0833 CC: [id number] DICTATION DATE: 08/10/16 1200 SEX WORKER OR ESCORT: ZULLY 08/11/16 1059 DIS IN 08/11/16 [place] [id number] [place] [address]
--- NOTE | 2016-08-12 08:33 | DS ---
PATIENT:ROSIE CORDOVA :54 MEDICAL RECORD: [id number] DISCHARGE SUMMARY ADMISSION DATE: 08/10/16 DISCHARGE DATE: 08/11/16 PROBLEM LIST: 1. Non-Q wave myocardial infarction. 2. Coronary artery disease. 3. Percutaneous transluminal coronary angioplasty stent all three vessels this admission. 4. Hypertension. 5. Hyperlipidemia. IMPRESSION AND PLAN: The patient presents with chest pain ruled in for a non-Q wave myocardial infarction. He underwent cardiac catheterization revealing severe three vessel coronary artery disease and underwent successful percutaneous transluminal coronary angioplasty stent of all three vessels. He is discharged home with the addition of aspirin, Plavix, metoprolol, and pravastatin to his medical regimen. He will follow up with [facility] in one month. EVELIA DICKSON MD at 0833 CC: [id number] DICTATION DATE: 08/11/162124 BROKERAGE CLERK: BRANDI 08/11/162124 DIS IN 08/11/16 [place] [id number] [place] [address]
== END 2016-08-11 14:19 | disposition home or self-care (01) ==
LOC: D.ER 22:22 → OBSVTIME 08-10 01:12 → D.M2 08-10 01:12
PROVIDERS: Emergency Medicine; ADMIT Internal Medicine Interventional Cardiology
DX: I21.4 Non-ST elevation (NSTEMI) myocardial infarction (principal); I25.119 Atherosclerotic heart disease of native coronary artery with unspecified angina pectoris; I10 Essential (primary) hypertension; E78.5 Hyperlipidemia, unspecified; Z00.6 Encounter for examination for normal comparison and control in clinical research program

== ENCOUNTER 2017-12-21 09:29 | Outpatient (CLI) | payer MEDICARE, OTHER ==
[~2017-12-21] VITALS: Ht 177.8 cm; Wt 84.5 kg
--- NOTE | ~2017-12-21 | HEMODYNAMI ---
PATIENT:ROSIE CRODOVA MEDICAL RECORD: [id number] : 54 LOCATION:DJENNIFFER ADMISSION DATE: 12/21/17 Generatedon:12/21/201711:35 Patient name: ROSIE CORDOVA Patient #: [id number] SSN: : 1 03/13/1949 Date of study: 12/21/2017 Page: Of Hemodynamic Procedure Report Patient Data Patient Demographics Procedure consent was obtained First Name: ROSIE Gender: Male Last Name: TASHA : 1950 Middle Initial: E Age: 67 year(s) Patient #: [id number] Race: Additional ID: [id number] Contact details [address]: [address] [place] [address] State: [place] City: [place] Zip code: [address] Past Medical History Allergies Allergen Reaction Date Comments Reported Other allergy 08/10/2016 hydrocodone Other allergy 12/21/2017 HYDROCODONE Admission Admission Data Admission Date: 12/21/2017 Admission Time: 9:29 Lab Results Lab Result Date: 12/21/2017 Lab Result Time: 0:00 Biochemistry Name Units Result Min Max BUN mg/dl 20 --(----)*- 7 18 Creatinine mg/dl 0.9 --(-*--)-- 0.6 1.3 CBC Name Units Result Min Max Hemoglobin g/dl 16.2 --(--*-)-- 13.5 17.5 Procedure Procedure Types Cath Procedure Diagnostic Procedure LHC LH w/Coronaries Sedation Charges Moderate Sedation up to 15 minutes PCI Procedure Coronary Stent Coronary Stent Initial Procedure Description Procedure Date Procedure Date: 12/21/2017 Procedure Start Time: 11:11 Procedure End Time: 11:32 Procedure Staff Name Function Jonathon Quiroga MD Performing Physician Ayaka Moya RT Monitor Jordy Lemons RT Scrub Jorge Gallo RN Nurse Procedure Data Cath Procedure Fluoroscopy Diagnostic fluoroscopy Total fluoroscopy Time: 8.5 time: 8.5 min min Diagnostic fluoroscopy Total fluoroscopy dose: 493 dose: 493 mGy mGy Contrast Material Contrast Material Type Amount (ml) Isovue 300 165 Entry Location Entry Primary Successful Side Size Upsize Upsize Entry Closure Succes sful Closure Location (Fr) 1 (Fr) 2 (Fr) Remarks Device Remarks Radial Right 6 Fr artery Short Estimated blood loss: 10 ml Diagnostic catheters Device Type Used For End Catheter Placement DIAGNOSTIC [place] 110cm 5 Procedure Fr catheter ([id number]) DIAGNOSTIC AR2 MOD 5 Fr Procedure catheter ([id number]) Procedure Complications No complications Procedure Medications Medication Administration Route Dosage Oxygen etCO2 Nasal cannula 2 l/min Heparin Flush Bag added to field 2 bags (1000units/500ml NS) 0.9% NaCl I.V. 100 ml/hr Radial Cocktail added to field 1 syringe (Verapomil 2mg/Nitro 400mcg/Heparin 1500units) Fentanyl I.V. 50 mcg Versed I.V. 1 mg Fentanyl I.V. 50 mcg Versed I.V. 1 mg Fentanyl I.V. 50 mcg Versed I.V. 1 mg Radial Cocktail I.A. 1 syringe (Verapomil 2mg/Nitro 400mcg/Heparin 1500units) Fentanyl I.V. 50 mcg Versed I.V. 1 mg Heparin Bolus I.V. 4000 units Integrilin (Bolus I.V. 7.9 ml 2mg/ml) Integrilin (Bolus wasted 2.1 ml 2mg/ml) Plavix P.O. 600 mg Hemodynamics Rest HGB: 16.2 (g/dl) Heart Rate: 71 (bpm) Snapshots Pre Cath Intra NCS Post Cath Vital Signs Time Heart Resp SPO2 etCO2 NIBP (mmHg) Rhythm Pain Sedation Rate (ipm) (%) (mmHg) Status Level (bpm) 10:43:35 70 17 98 0 172/94(138) NSR 0 (11) 10(A) , No pain 10:48:04 72 16 96 30.8 155/91(121) NSR 0 (11) 10(A) , No pain 10:52:36 67 16 92 26.3 138/80(126) NSR 0 (11) 10(A) , No pain 10:57:00 67 16 94 0 127/76(100) NSR 0 (11) 10(A) , No pain 11:01:20 80 16 93 0 139/79(117) NSR 0 (11) 10(A) , No pain 11:05:41 69 16 94 33.1 144/78(100) NSR 0 (11) 10(A) , No pain 11:10:01 67 17 94 30.8 135/66(103) NSR 0 (11) 10(A) , No pain 11:14:15 71 16 93 0 99/53(62) NSR 0 (11) 9(A) , No pain 11:18:29 79 16 92 18 119/63(84) NSR 0 (11) 9(A) , No pain 11:22:49 85 16 93 9 114/62(94) NSR 0 (11) 9(A) , No pain 11:27:11 83 17 93 19.5 116/64(93) NSR 0 (11) 9(A) , No pain 11:31:33 91 16 94 37.6 112/65(91) NSR 0 (11) 9(A) , No pain Medications Time Medication Route Dose Verified Delivered Reason Not es Effectiveness by by 10:43:24 Oxygen etCO2 2 l/min Jonathon Patel Per physician Nasal Junaid Gallo RN cannula 10:43:33 Heparin Flush added 2 bags Jonathonmolly Patel used for Bag to Junaid Gallo RN procedure (1000units/500ml field NS) 10:43:44 0.9% NaCl I.V. 100 Jonathon Jorge Per physician ml/hr Junaid Gallo RN 10:43:53 Radial Cocktail added 1 Jonathon Patel used for (Verapomil to syringe Junaid Gallo RN procedure 2mg/Nitro field 400mcg/Heparin 1500units) 11:05:46 Fentanyl I.V. 50 mcg Jonathon Jorge for sedation Junaid Gallo RN 11:05:54 Versed I.V. 1 mg Jonathon Jorge for sedation Junaid Gallo RN 11:08:54 Fentanyl I.V. 50 mcg Jonathon Jorge for sedation Junaid Gallo RN 11:08:59 Versed I.V. 1 mg Jonathon Jorge for sedation Junaid Gallo RN 11:10:55 Fentanyl I.V. 50 mcg Jonathon Jorge for sedation Junaid Gallo RN 11:10:58 Versed I.V. 1 mg Jonathon Jorge for sedation Junaid Gallo RN 11:13:06 Radial Cocktail I.A. 1 Jonathon Holt for (Verapomil syringe Junaid Quiroga MD vasodilation 2mg/Nitro 400mcg/Heparin 1500units) 11:13:17 Fentanyl I.V. 50 mcg Jonathon Patel for sedation Junaid Gallo RN 11:13:33 Versed I.V. 1 mg Jonathon Patel for sedation Junaid Gallo RN 11:21:19 Heparin Bolus I.V. 4000 Jonathon Patel for units Junaid Gallo RN anticoagulation 11:21:32 Integrilin I.V. 7.9 ml Jonathon Patel for (Bolus 2mg/ml) Junaid Gallo RN antiplatelet therapy 11:21:40 Integrilin wasted 2.1 ml Jonathon Patel for (Bolus 2mg/ml) Junaid Gallo RN antiplatelet therapy 11:31:15 Plavix P.O. 600 mg Jonathon Patel for Junaid Gallo RN antiplatelet therapy Procedure Log Time Note 10:20:38 Jorge Gallo RN sent for patient. Start room use. 10:27:04 Signed procedure consent form obtained from patient. 10:27:06 Time tracking: Regular hours (M-F 7:00 - 5:00) 10:27:09 Plan of Care:Hemodynamics will remain stable., Cardiac rhythm will remain stable., Comfort level will be maintained., Respiratory function will remain adequate., Patient/ family verbilizes understanding of procedure., Procedure tolerated without complication., Recovers from procedure without complications.. 10:27:11 Diagnostic Cath status Elective 10:27:25 H&P Date Dictated: 12/20/2017 Within 30 days and on chart., H&P Addendum completed by physician on day of procedure. (MUST COMPLETE FOR ALL OUTPATIENTS). 10:27:56 Patient allergic to Other allergyHYDROCODONE 10:33:17 Lab Result : BUN 20 mg/dl 10:33:17 Lab Result : Creatinine 0.9 mg/dl 10:33:17 Lab Result : Hemoglobin 16.2 g/dl 10:35:13 Patient received from Pre/Post Procedure Room to [facility] 3 Alert and oriented. Tansferred to table in Supine position. 10:35:15 Warm blankets applied, and tereza hugger turned on for patient comfort. 10:35:15 Correct patient and procedure confirmed by team. 10:35:16 ECG and BP/O2 sat monitors applied to patient. 10:42:09 Vital chart was started 10:43:24 Oxygen 2 l/min etCO2 Nasal cannula was administered by Jorge Gallo RN; Per physician; 10:43:33 Heparin Flush Bag (1000units/500ml NS) 2 bags added to field was administered by Jorge Gallo RN; used for procedure; 10:43:44 0.9% NaCl 100 ml/hr I.V. was administered by Jorge Gallo RN; Per physician; 10:43:53 Radial Cocktail (Verapomil 2mg/Nitro 400mcg/Heparin 1500units) 1 syringe added to field was administered by Jorge Gallo RN; used for procedure; 10:49:07 Baseline sample Acquired. 10:49:10 Rhythm: sinus rhythm 10:49:11 Full Disclosure recording started 10:49:12 Pre-procedure instructions explained to patient. 10:49:12 Pre-op teaching completed and patient verbalized understanding. 10:49:14 Family in patients room. 10:49:16 Patient NPO since Midnight. 10:49:17 Is the patient allergic to Iodine/contrast media? No. 10:49:18 Is patient on blood thinner?No 10:49:20 Patient diabetic? No. 10:49:22 Previous problem with sedation/anesthesia? No ? 10:49:23 Snore? Yes 10:49:24 Sleep apnea? Yes 10:49:25 Deviated septum? No 10:49:25 Opens mouth fully? Yes 10:49:26 Sticks out tongue? Yes 10:49:27 Airway obstruction? No ? 10:49:29 Dentures? No ? 10:49:31 Modified Jovani's test Ulnar < 7 seconds 10:49:34 Patient pain scale 0/10 ?. 10:49:38 IV patent on arrival in left hand with 0.9% NaCl at [facility]. 10:49:43 Lab results completed and on chart. 10:49:47 Right Radial & Right Groin area was prepped with chlora-prep and draped in sterile fashion 10:49:48 Alarms reviewed by R. N. 10:49:49 Sharps counted by scrub and verified by R.N. 10:52:44 Use device set Radial Dx or PCI 10:52:45 ACIST Syringe (46271) opened to sterile field. 10:52:48 ACIST Hand Control (28432) opened to sterile field. 10:52:49 Bag Decanter (2001S) opened to sterile field. 10:52:50 ACIST Manifold (97195) opened to sterile field. 10:52:51 Tegaderm 4 x 4 (1626W) opened to sterile field. 10:52:53 Medline Cath Pack ([id number]) opened to sterile field. 10:52:53 DIAGNOSTIC WIRE .035 260cm J wire (727586) opened to sterile field. 10:52:55 SHEATH 6Fr Prelude Radial ([id number]) opened to sterile field. 10:59:08 Zero performed for pressure channel P1 11:04:44 --------ALL STOP TIME OUT------ 11:04:45 Final Timeout: patient, procedure, and site verified with staff and physician. All members of the team are in agreement. 11:04:46 Right Radial & Right Groin site verified by team. 11:04:51 Physical assessment completed. ASA score P 2 - A patient with mild systemic disease as per Jonathon Quiroga MD. 11:04:54 Sedation plan: IV Moderate Sedation Medication:Versed, Fentanyl 11:05:46 Fentanyl 50 mcg I.V. was administered by Jorge Gallo RN; for sedation; 11:05:54 Versed 1 mg I.V. was administered by Jorge Gallo RN; for sedation; 11:08:54 Fentanyl 50 mcg I.V. was administered by Jorge Gallo RN; for sedation; 11:08:59 Versed 1 mg I.V. was administered by Jorge Gallo RN; for sedation; 11:10:55 Fentanyl 50 mcg I.V. was administered by Jorge Gallo RN; for sedation; 11:10:58 Versed 1 mg I.V. was administered by Jorge Vargasell RN; for sedation; 11:11:03 Procedure started. 11:11:19 Local anesthetic to right radial artery with Lidocaine 2% by Jonathon Quiroga MD.INITIAL ACCESS ONLY 11:12:01 A 6 Fr Short sheath was inserted into the Right Radial artery 11:12:33 A DIAGNOSTIC [place] 110cm 5 Fr catheter (077162) was advanced over the wire and used for Procedure. 11:13:06 Radial Cocktail (Verapomil 2mg/Nitro 400mcg/Heparin 1500units) 1 syringe I.A. was administered by Jonathon Quiroga MD; for vasodilation; 11:13:17 Fentanyl 50 mcg I.V. was administered by Jorge Gallo RN; for sedation; ::23 LV gram done using MERCADO 11:13:28 Injector settings: Ml/sec: 71, Volume: 15, 11:13:33 Versed 1 mg I.V. was administered by Jorge Gallo RN; for sedation; 11:14:08 EF : 50 % 11:15:02 LCA angiography performed. 11:16:22 UNABLE TO ENGAGE RCA 11:16:23 Catheter exchanged over wire. 11:16:46 A DIAGNOSTIC AR2 MOD 5 Fr catheter ([id number]) was advanced over the wire and used for Procedure. 11:18:35 RCA angiography performed. 11:18:38 Catheter exchanged over wire. 11:18:52 CHOICE PT Extra Support 182cm wire ([id number]) opened to sterile field. 11:18:54 INFLATOR Merit BasixCompak (HH9516) opened to sterile field. 11:19:48 GUIDE 6FR XBLAD 3.5 catheter ([id number]) opened to sterile field. 11:20:04 6 Fr XBLAD 3.5 guide catheter was inserted over the wire 11:20:09 CHOICE ES 182 wire advanced. 11:20:50 Wire advanced across lesion. 11:21:19 Heparin Bolus 4000 units I.V. was administered by Jorge Gallo RN; for anticoagulation; 11:21:32 Integrilin (Bolus 2mg/ml) 7.9 ml I.V. was administered by Jorge Gallo RN; for antiplatelet therapy; 11:21:40 Integrilin (Bolus 2mg/ml) 2.1 ml wasted was administered by Jorge Gallo RN; for antiplatelet therapy; 11:21:56 Inflate balloon Inflation number: 1 A EUPHORA 2.0 x 30 Balloon ([id number]) was prepped and advanced across the Mid LAD, then inflated to 5 LALITHA for 0:10 (min:sec). 11:22:22 Inflation number: 2 The EUPHORA 2.0 x 30 Balloon ([id number]) was reinflated across the Mid LAD, to 5 LALITHA for 0:10 (min:sec). 11:22:47 Balloon removed over the wire. 11:25:08 The RENU RX 2.0 x 30 stent ([id number]) was advanced then removed because of failure to cross lesion 11:26:17 Inflation number: 3 The EUPHORA 2.0 x 30 Balloon ([id number]) was reinflated across the Mid LAD, to 15 LALITHA for 0:10 (min:sec). 11:26:39 Inflation number: 4 The EUPHORA 2.0 x 30 Balloon ([id number]) was reinflated across the Mid LAD, to 17 LALITHA for 0:10 (min:sec). 11:26:47 Balloon removed over the wire. 11:27:59 Place stent Inflation Number: 5 A RENU RX 2.0 x 30 stent ([id number]) was prepped and advanced across the Mid LAD. The stent was deployed at 15 LALITHA for 0:10 (min:sec). 11:28:21 Stent catheter was removed intact over wire. 11:29:10 Wire removed. 11:29:11 Guide catheter removed. 11:29:23 Procedure ended.(Physican Out) 11:29:27 TR BAND Standard ([id number]) opened to sterile field. 11::59 Fluoroscopy time 08.50 minutes. 11:31:04 Flurop Dose total: 493 11:31:05 Fluoroscopy dose: 493 mGy 11:31:08 Contrast amount:Isovue 300 165ml. 11:31:10 TR band inflated with 10cc of air. 11:31:15 Plavix 600 mg P.O. was administered by Jorge Gallo RN; for antiplatelet therapy; 11:31:18 Post-procedure physical assessment completed. ASA score P 2 - A patient with mild systemic disease as per Jonathon Quiroga MD. 11:31:20 Post procedure rhythm: sinus rhythm ::22 Estimated blood loss: 10 ml 11:31:23 Post procedure instruction explained to patient.Patient verbalizes understanding. 11:31:24 Patient needs reinforcement of post procedure teaching. 11:31:43 Procedure type changed to Cath procedure, Diagnostic procedure, LHC, LHC w/Coronaries, Sedation Charges, Moderate Sedation up to 15 minutes, PCI procedure, Coronary Stent, Coronary Stent Initial 11:32:06 Procedure and supply charges have been captured, reviewed, submitted and are correct. 11:32:09 Procedure Complication : No complications 11:32:11 Vital chart was stopped 11:32:11 See physician's report for complete and final results. 11:32:12 Report given to Pre/Post Procedure Room. 11:32:15 Patient transfered to Pre/Post Procedure Room with Bed. 11:32:18 Procedure ended. 11:32:18 Full Disclosure recording stopped 11:32:21 End room use (Document Last) Intervention Summary Intervention Notes Time ActionType Lesion and Equipment Used Action# Pressure Duration Attributes 11:21:56 Inflate Mid LAD EUPHORA 2.0 x 1 5 00:10 balloon 30 Balloon ([id number]) 11:22:22 Reinflate Mid LAD EUPHORA 2.0 x 2 5 00:10 balloon 30 Balloon ([id number]) 11:25:08 Discard RENU RX 2.0 x Stent 30 stent ([id number]) 11:26:17 Reinflate Mid LAD EUPHORA 2.0 x 3 15 00:10 balloon 30 Balloon ([id number]) 11:26:39 Reinflate Mid LAD EUPHORA 2.0 x 4 17 00:10 balloon 30 Balloon ([id number]) 11:27:59 Place stent Mid LAD RENU RX 2.0 x 5 15 00:10 30 stent ([id number]) Device Usage Item Name Manufacture Quantity Catalog Number Hospital Part Current M inimal Lot# / Charge Number Stock Stock Serial# Code ACIST Syringe Acist 1 10761 231521 406823 337877 2 0 (62297) Medical Systems Inc ACIST Hand Acist 1 29716 678407 547557 192439 5 Control (57248) Medical Systems Inc Bag Decanter Microtek 1 2001S 206085 90146 812606 5 () Medical Inc. ACIST Manifold Acist 1 71255 879525 064242 190915 5 (30633) Medical Systems Inc Tegaderm 4 x 4 3M 1 1626W 888880 781867 245395 5 (1626W) Medline Cath Medline 1 [id number] 740667 47315 572129 5 Pack ([id number]) DIAGNOSTIC WIRE [facility] [place] 1 579232 418472 530502 541802 3 0 .035 260cm J wire (246029) SHEATH 6Fr Merit 1 [id number] 666448 315148 022044 5 Prelude Radial Medical ([id number]) DIAGNOSTIC Terumo 1 40-0783 367837 061569 584368 5 [place] 110cm 5 Fr catheter (428996) DIAGNOSTIC AR2 Cardinal 1 [id number] 441628 906665 934236 2 0 MOD 5 Fr Health catheter (182114R) CHOICE PT Extra [place] 1 [id number] 198405 404191 901586 5 Support 182cm Scientific wire ([id number]) INFLATOR Merit Merit 1 IR2262 066222 553175 302938 1 5 [email or web address] Medical (TE0767) GUIDE 6FR XBLAD Cardinal 1 [id number] 354956 900079 657257 1 0 3.5 catheter Health ([id number]) EUPHORA 2.0 x Medtronic 1 [id number] 648248 660733 239629 5 [id number] 30 Balloon ([id number]) RENU RX 2.0 x Medtronic 1 [id number] 789462 242830 206368 5 [id number] 30 stent ([id number]) TR BAND Terumo 1 [id number] 698414 924081 447285 4 0 Standard ([id number]) Signature Audit [place] Stage Time Signature Unsigned Intra-Procedure 12/21/2017 Ayaka Moya 11:35:27 AM RT(R) Signatures Monitor : Ayaka Moya Signature : RT Date : Time : [facility] [address] [place] [address]
--- NOTE | ~2017-12-21 | OP ---
PATIENT NAME: ROSIE CORDOVA MEDICAL RECORD: [id number] :54 LOCATION:D.CAT ADMISSION DATE: SURGEON: EVELIA DICKSON MD DATE OF OPERATION: 12/21/2017 PROCEDURES: 1. PTCA and stent, LAD. 2. Left heart catheterization. 3. Selective coronary angiography. 4. Left ventriculogram. INDICATION: Angina and coronary disease. PROCEDURE IN DETAIL: After informed consent was obtained with detailed description of risks and benefits as well as alternative therapies, the patient elected to proceed with angiogram and angioplasty. The right radial area was prepped and draped in normal sterile fashion. The right radial artery was cannulated via modified Seldinger technique with placement of 6-Yoruba sheath. All catheters were exchanged through this sheath. FINDINGS: Left ventriculogram was performed in standard 30-degree MERCADO view, reveals good cardiac wall motion throughout all segments. Overall ejection fraction is estimated at 60%. SELECTIVE CORONARY ANGIOGRAPHY: 1. Left main is with no significant angiographic disease. 2. Left anterior descending has long area of multiple 95% stenosis. 3. Left circumflex has moderate irregularities, but no flow-limiting stenosis. 4. Right coronary has previously placed stent. This is widely patent with no significant restenosis. No disease else marino of the RCA or its branches. SHIP'S CAPTAIN AND STENT OF THE LAD: The stent used covering this area of stenosis is 2.0 x 30-mm [place]. The result was 0% residual stenosis. OVERALL IMPRESSION: Successful PTCA and stent of the LAD going from multiple areas of 95% initial stenosis to 0% residual. TRANSINT:[id number] Voice Confirmation ID: [id number] DOCUMENT ID: [id number] EVELIA DICKSON MD at 1856 CC: [id number] DICTATION DATE: 12/21/17 1134 CONTROL INSPECTOR: 12/21/17 1149 DEP CLI 12/21/17 [place] [id number]
[~2017-12-21 09:29] MED LIST: ALEVE220 MG PO; BAYER CHEWABLE81 MG; HALCION0.25 MG PO; NAPROSYN500 MG PO; PLAVIX75 MG PO; PRAVACHOL20 MG PO; TOPROL XL25 MG PO; ULTRAM50 MG PO; XANAX0.25 MG PO
[2017-12-21 10:09] VITALS: BP 150/94; Ht 177.8 cm; Wt 84.5 kg
[2017-12-21 10:10] LABS: BASOPHILS 0.6 % (0-2); HEMATOCRIT 44.8 % (42.0-54.0); HEMOGLOBIN 16.2 g/dL (13.5-17.5); IMMATURE GRANULOCYTES 0.1 % (0-5); LYMPHOCYTES 34.9 % (15-50); MCH 29.7 pg (26.0-34.0); MCHC 36.2 g/dL (31.0-37.0); MCV 82.1 fL (80.0-100.0); MEAN PLATELET VOLUME 9.9 fL (7.4-10.4); MONOCYTES 7.5 % (2-11); NEUTROPHILS 52.9 % (40-80); PLATELET COUNT 199 10x3/uL (130-400); RBC 5.46 10x6/uL (4.20-6.10); RDW 13.3 % (11.5-14.5); WBC 7.2 10x3/uL (4.8-10.8)
[2017-12-21 10:16] LABS: CALC OSMOLALITY 281 mosm/kg (275-300); CALCIUM 9.2 mg/dL (8.5-10.1); CHLORIDE - SERUM 104 mmol/L (98-107); CREATININE - SERUM 0.9 mg/dL (0.6-1.3); GLUCOSE 110 mg/dL (74-106); POTASSIUM - SERUM 4.1 mmol/L (3.5-5.1); SODIUM 139 mmol/L (136-145); UREA NITROGEN 20 mg/dL (7-18); eGFR NON AFRICAN AMERICAN 90 mL/min (90-120)
[2017-12-21] MEDS ORDERED: BAYER CHEWABLE81 MG PO (12:11)
[2017-12-21] MEDS ORDERED: PLAVIX75 MG PO (12:11)
== END 2017-12-21 15:55 | disposition home or self-care (01) ==
LOC: D.CATH 09:29
PROVIDERS: Internal Medicine Interventional Cardiology
DX: I25.119 Atherosclerotic heart disease of native coronary artery with unspecified angina pectoris (principal); Z01.812 Encounter for preprocedural laboratory examination
CPT/HCPCS: 93458; C9600